=== PATIENT | male | born 1985 | race Caucasian/White ===

== ENCOUNTER 2021-02-27 20:00 | Emergency (ER) | payer SELFPAY ==
[2021-02-27 20:07] VITALS: BP 194/108; PULSE 123; RESP 20; TEMP 37.8; O2SAT 100
--- NOTE | 2021-02-27 20:12 | ED.LOWEXIN ---
HPI - Extremity Injury (Lower) General Chief Complaint: Extremity Injury, Lower Stated Complaint: Pt. has a fever and swollen right Leg Time Seen by Provider: 02/27/21 20:10 Source: patient, RN notes reviewed and old records reviewed Mode of arrival: ambulatory Limitations: no limitations History of Present Illness HPI Narrative: 35 year old male who presents to [facility] care with complaints of noting yesterday redness and swelling to his lateral right lower leg. He reports that he went to work today and redness, swelling and pain has increased to area on his right lateral lower leg. He reports that he is also running a fever and took some Ibuprofen for his fever and discomfort at 1700. Patient has warmth to wound area with no drainage present. Patient questions if he could of gotten bitten by spider or some other kind of insect. complaint: other (right lateral lower leg) Onset (ago): day(s) (2) Severity scale (1-10): 5 Relieving factors: nothing Exacerbating factors: other (walking) Context: other (unsure) Associated symptoms: swelling and other (redness and swelling right lateral lower leg) Treatments prior to arrival: NSAIDS Related Data Allergies Allergy/AdvReac Type Severity Reaction Status Date / Time No Known Allergies Allergy Verified 02/27/21 20:12 Review of Systems Review of Systems: Narrative: CONSTITUTIONAL: Positive fever, chills, or sweats. EYES: Denies visual changes, redness, or discharge. ENT: Denies rhinorrhea, congestion, sore throat, or otalgia. CARDIOVASCULAR: Denies chest pain, palpitations, or edema. RESPIRATORY: Denies cough or dyspnea. GASTROINTESTINAL: Denies abdominal pain, nausea, vomiting, or diarrhea. GENITOURINARY: Denies dysuria or hematuria. SKIN: Positive for red swollen tissue area to the lateral right lower leg with warmth and pain, denies any itching of tissue no drainage.. MUSCULOSKELETAL: Denies back pain, joint pain, or myalgia. Pain to right lateral lower leg NEUROLOGIC: Denies headache, numbness, or weakness. PSYCHIATRIC: Denies anxiety or depression. All systems reviewed & are unremarkable except as noted in HPI and below PMFSH Past Medical History Medical History (Updated 02/28/21 @ 15:39 by Barbara Hsu NP) Hypertension on no medication Surgical History Surgical History (Updated 02/28/21 @ 15:23 by Barbara Hsu NP) History of hand surgery right Family History Family History (Updated 02/28/21 @ 15:23 by Barbara Hsu NP) Mother Cerebrovascular accident Hypertension Social History Social History (Updated 02/28/21 @ 15:25 by Barbara Hsu NP) Smoking status: Never smoker Alcohol intake: current Alcohol use details: social Substance use: never Living arrangements: with family Gender identity (if verbalized by the patient): Male Comments At time of signature, agree with nursing past medical, surgical, social and family history. There is no relevant family history pertinent to the presenting complaint Exam Narrative: Exam Narrative: GENERAL: Well-appearing, well-nourished, and in no acute distress. HEAD: Normocephalic, atraumatic. EYES: PERRLA and EOMI. ENT: Nares clear, no rhinorrhea or epistaxis. Mucous membranes moist.TM's normal with good light reflex, Throat pink with no lesions or exudates, no tonsil swelling NECK: Supple. no lymphadenopathy CHEST: Clear to auscultation. No respiratory distress. SAO2 100% on room air HEART: Tachycardia rate and rhythm. No murmur heard. Normal peripheral pulses. ABDOMEN: Soft, nontender, nondistended, normal active bowel sounds. EXTREMITIES: Normal range of motion. No edema. with exception to right lateral lower leg where edema present with wound area SKIN: Warm, dry, 7cmX4.5cm area to right lower lateral right leg with redness and warmth no drainage or induration of tissue. painful throbbing to area, Patient has strong right pedal and posterior tibial pulses, denies any tingling or numbness to
[2021-02-27 20:22] VITALS: BP 180/100
== END 2021-02-27 20:31 | disposition home or self-care (01) ==
PROVIDERS: Emergency Provider Registered Nurse
DX: L03.115 Cellulitis of right lower limb (principal)
CPT/HCPCS: 99203; 99213; G0463

== ENCOUNTER 2021-07-11 18:13 | Emergency (ER) | payer SELFPAY ==
[2021-07-11 18:19] VITALS: BP 211/98; PULSE 128; RESP 20; TEMP 36.6; O2SAT 100
--- NOTE | 2021-07-11 18:32 | ED.URI ---
HPI - URI/Sore Throat General Chief Complaint: Fever Stated Complaint: fever chills aches History of Present Illness HPI Narrative: pATIENT STATES HE STARTED TO HAVE SYMPTOMS TODAY OF COUGHING, FEVER AND NOT FEELING WELL PATIENT STATES THAT HE IS NOT VACCINATED AND IS NO FEELING WELL AFRAID HE MAY COVID ALTHOUGH HE HAS NOT Related Data Allergies Allergy/AdvReac Type Severity Reaction Status Date / Time No Known Allergies Allergy Verified 02/27/21 20:12 Review of Systems Review of Systems: Fever, coughing, body All systems reviewed & are unremarkable except as noted in HPI and below PMFSH Past Medical History Medical History (Updated 07/12/21 @ 19:01 by Sami Haas NP) Hypertension on no medication Surgical History Surgical History (Updated 02/28/21 @ 15:23 by Barbara Hsu NP) History of hand surgery right Family History Family History (Updated 02/28/21 @ 15:23 by Barbara Hsu NP) Mother Cerebrovascular accident Hypertension Social History Social History (Updated 02/28/21 @ 15:25 by Barbara Hsu NP) Smoking status: Never smoker Alcohol intake: current Alcohol use details: social Substance use: never Gender identity (if verbalized by the patient): Male Comments At time as signature, I have reviewed and agree with nursing past medical, social, surgical and family history. Please see nursing chart for further information. There is no relevant family history pertinent to the presenting complaint. Exam Narrative: GENERAL:Ill-appearing, well-nourished, and in no acute distress. HEAD:Normocephalic. EYES: PERRLA ENT: Nares clear, no rhinorrhea or epistaxis. Mucous membranes moist. CHEST: Clear to auscultation. No respiratory distress. HEART: tachycardia and irregular regular EXTREMITIES: Normal range of motion. No edema. SKIN: Warm, dry, no rash. NEURO: No focal deficits. Alert and oriented x3. 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 Patient informs me that he knows his blood pressure is high is always high and he has been seen and he supposed to follow-up with the specialist. I explained to patient that he is at increased risk for stroke heart attack and could . I also explained to patient he needed to go to the emergency room he quickly declined and said he is not going. Patient states he just wants to be swabbed for covid so his girlfirend could have a piece of mind . I explained to patient his symptoms just started a couple of hours ago I would give him a outpatient test but would not test him today. I have encouraged him several times during this visit to go to the emergency room and he continue to decline. I explained he is to young to be having blood pressure this high and that if he did not have it taken care of he would not be around to see his kids live. Patient informs me he has been told that before and he is going to call the specialist soon. Vital Signs Vital signs: Vital Signs Temperature 97.9 F 07/11/21 18:19 Pulse Rate 128 H 07/11/21 18:19 Respiratory Rate 20 07/11/21 18:19 Blood Pressure 211/98 H 07/11/21 18:19 Pulse Oximetry 100 07/11/21 18:19 Temperature 97.9 F 07/11/21 18:19 Pulse Rate 128 H 07/11/21 18:19 Respiratory Rate 20 07/11/21 18:19 Blood Pressure 211/98 H 07/11/21 18:19 Pulse Oximetry 100 07/11/21 18:19 MDM - URI/Sore Throat Lab Data Labs: Influenza A Screen Negative Reference Range: Negative Influenza B Screen Negative Reference Range: Negative Strep Screen Presumptive Negative *(Reference Range: Negative)* Discharge Plan Discharge Clinical Impression: Fev
== END 2021-07-11 19:10 | disposition home or self-care (01) ==
PROVIDERS: Emergency Provider Nurse Practitioner Family
DX: B34.9 Viral infection, unspecified (principal); I10 Essential (primary) hypertension
CPT/HCPCS: 87081; 87804; 87880; 99213; G0463